=== PATIENT | female | born 1975 | race Caucasian/White ===

== ENCOUNTER 2017-11-14 10:54 | Emergency (ER) | payer OTHER ==
[~2017-11-14 10:54] MED LIST: ALPR.25 PO; ANUS25SU PR; LEVO137T2 PO; LISI-586 PO; METO25 PO; PERI8.6T PO
[2017-11-14 11:00] VITALS: BP 153/82; PULSE 151; RESP 18; TEMP 98.5; O2SAT 98
[2017-11-14 11:10] VITALS: BP 114/57; PULSE 105; RESP 17; O2SAT 100
[2017-11-14] MEDS ORDERED: hydrOXYzine PAMOATE 25 MG CAP PO ONE (11:15)
[2017-11-14] MEDS ORDERED: SODIUM CHLORIDE 0.9% FLUSH 10 ML FLUSH IVF PRN (11:15)
--- NOTE | 2017-11-14 11:28 | PD ---
HPI Chief Complaint: Anxiety Time Seen by Provider: 11:06 Travel History International Travel<30 days: No Contact w/Intl Traveler<30days: No Traveled to known affect area: No History of Present Illness HPI 42-year-old female presents emergency department with history of anxiety, presents emergency department with increased acute anxiety this morning. Patient states she woke up anxious, after taking some ibuprofen for some coccygeal pain that she has been suffering with. She states she took half a Xanax which is prescribed to her, but her symptoms did not improve. She took the other half and let it dissolve under tongue, and felt even worse, including some chest pain. She took a baby aspirin. She complains of numbness in both hands and forearms, as well as around her mouth. She denies chest pain at this time. She describes as very sharp and intermittent. She is somewhat nauseous but no vomiting or diarrhea. No recent fever. No recent illness. Patient has a long history of anxiety by her report. Patient is allergic to fiberglass, methylprednisone, and prochlorperazine. PFSH Past Medical History Anxiety: Yes High Cholesterol: Yes Diminished Hearing: No Headaches: Yes Hypertension: Yes Immunizations Current: Yes Thyroid Disease: Yes ?: Not : 6 Para: 2 Miscarriage: 1 : 3 Tubal Ligation: Yes Past Surgical History Section: Yes (X2) Gynecologic Surgery: Yes () Tonsillectomy: Yes Social History Alcohol Use: No Tobacco Use: No Substance Use: No Allergies-Medications (Allergen,Severity, Reaction): Coded Allergies: methylprednisolone (Unverified Allergy, Severe, ANXIETY, 11/14/17) prochlorperazine (Unverified Allergy, Severe, ANXIETY, 11/14/17) Uncoded Allergies: FIBERGLASS (Allergy, Severe, Anaphylaxis, 07/26/10) Reported Meds & Prescriptions Reported Meds & Active Scripts Active Anusol-Hc (Hydrocortisone Acetate) 25 Mg Sup 25 Mg ME BID 7 Days Reported Mandi-Colace 8.6-50 mg (Sennosides-Docusate Sodium) 1 Tab Tab Unknown Dose PO DIRECTED Xanax 0.25 Mg (Alprazolam) Alprazolam 0.25 mg Tab 1 Tab PO Q6H PRN Levothyroxine 137 mcg (Levothyroxine Sodium) 137 Mcg Tab 1 Mcg PO DAILY Zestoretic 20/12.5 (Lisinopril/Hctz 20 mg/12.5 mg) 20 Mg/12.5 Mg Tab 1 Tab PO DAILY Metoprolol Tartrate 25 mg (Metoprolol Tartrate) 25 Mg Tab 25 Mg PO BID Review of Systems Except as stated in HPI: all other systems reviewed are Neg General / Constitutional: No: Fever Eyes: No: Visual changes HENT: No: Headaches Cardiovascular: Positive: Chest Pain or Discomfort (Reported in history of present illness per), Tachycardia Respiratory: No: Shortness of Breath Gastrointestinal: Positive: Nausea, No: Vomiting, Diarrhea, Abdominal Pain Genitourinary: No: Dysuria Musculoskeletal: No: Pain Skin: No Rash Neurologic: Positive: Paresthesia, No: Weakness Psychiatric: Positive: Anxiety, No: Depression Endocrine: No: Polydipsia Hematologic/Lymphatic: No: Easy Bruising Physical Exam Narrative GENERAL: Patient appears very anxious and is hyperventilating upon arrival. SKIN: Warm and dry. Normal color. Normal turgor per HEAD: Atraumatic. Normocephalic. EYES: Pupils equal and round. No scleral icterus. No injection or drainage. ENT: No nasal bleeding or discharge. Mucous membranes pink and moist. Pharynx is clear. Airways patent NECK: Trachea midline. Supple nontender without palpable thyroid CARDIOVASCULAR: Tachycardia rate and normal rhythm. RESPIRATORY: No accessory muscle use. Clear to auscultation. Breath sounds equal bilaterally. GASTROINTESTINAL: Abdomen soft, non-tender, nondistended. Hepatic and splenic margins not palpable. MUSCULOSKELETAL: Extremities without clubbing, cyanosis, or edema. No obvious deformities. Range of motion is full. Neurovascular exam is normal. NEUROLOGICAL: Awake and alert. No obvious cranial nerve deficits. Motor grossly within normal limits. Five out of 5 muscle strength in the arms and legs. Normal speech. PSYCHIATRIC: Appropriate mood and affect; insight and judgment normal. Data Data Last Documented VS Vital Signs Date Time Temp Pulse Resp B/P (MAP) Pulse Ox O2 Delivery O2 Flow Rate FiO2 11/14/17 11:32 100 Room Air 11/14/17 11:32 11/14/17 11:10 105 17 11/14/17 11:00 98.5 Orders Orders Electrocardiogram (11/14/17 11:11) Basic Metabolic Panel (Bmp) (11/14/17 11:11) Complete Blood Count With Diff (4/2/18 11:11) Ecg Monitoring (11/14/17 11:11) Iv Access Insert/Monitor (11/14/17 11:11) Oximetry (11/14/17 11:11) Oxygen Administration (11/14/17 11:11) Sodium Chloride 0.9% Flush (Ns Flush) (11/14/17 11:15) Hydroxyzine Pamoate (Vistaril) (11/14/17 11:15) Labs Laboratory Tests Test 11/14/17 11:30 White Blood Count 10.6 TH/MM3 Red Blood Count 4.44 MIL/MM3 Hemoglobin 13.2 GM/DL Hematocrit 38.4 % Mean Corpuscular Volume 86.5 FL Mean Corpuscular Hemoglobin 29.7 PG Mean Corpuscular Hemoglobin Concent 34.4 % Red Cell Distribution Width 13.6 % Platelet Count 231 TH/MM3 Mean Platelet Volume 8.2 FL Neutrophils (%) (Auto) 78.3 % Lymphocytes (%) (Auto) 17.1 % Monocytes (%) (Auto) 3.3 % Eosinophils (%) (Auto) 0.6 % Basophils (%) (Auto) 0.7 % Neutrophils # (Auto) 8.3 TH/MM3 Lymphocytes # (Auto) 1.8 TH/MM3 Monocytes # (Auto) 0.4 TH/MM3 Eosinophils # (Auto) 0.1 TH/MM3 Basophils # (Auto) 0.1 TH/MM3 CBC Comment DIFF FINAL Differential Comment Blood Urea Nitrogen 16 MG/DL Creatinine 0.87 MG/DL Random Glucose 156 MG/DL Calcium Level 8.8 MG/DL Sodium Level 138 MEQ/L Potassium Level 3.5 MEQ/L Chloride Level 102 MEQ/L Carbon Dioxide Level 26.8 MEQ/L Anion Gap 9 MEQ/L Estimat Glomerular Filtration Rate 71 ML/MIN [facility] Medical Decision Making Medical Screen Exam Complete: Yes Emergency Medical Condition: Yes Differential Diagnosis Anxiety. Chest pain. Shortness of breath. Hyper ventilation. Narrative Course Vital signs are stable. Patient is given 25 mg of Vistaril p.o. EKG is ordered. Labs ordered including CBC, and BMP. EKG shows normal sinus rhythm without ST changes. CBC, BMP are normal Patient is reevaluated after observation and feels 100% better. We will for discharge home. Patient is given a prescription for Vistaril 25 mg up to 4 times daily as needed #30. Recommend patient follow-up with her psychiatrist and counselor as discussed. Patient can return if symptoms worsen as needed. Diagnosis Primary Impression: Anxiety Additional Impression: Anxiety hyperventilation Referrals: Primary Care Physician Psychiatrist Patient Instructions: Anxiety (ED), General Instructions Additional Instructions: EKG shows normal sinus rhythm without ST changes. CBC, BMP are normal Patient is reevaluated after observation and feels 100% better. We will for discharge home. Patient is given a prescription for Vistaril 25 mg up to 4 times daily as needed #30. Recommend patient follow-up with her psychiatrist and counselor as discussed. Patient can return if symptoms worsen as needed. Med/Other Pt SpecificInfo: Prescription(s) given Disposition: DISCHARGE HOME Condition: Stable Goldy Suarez Nov 14, 2017 11:28
[2017-11-14 11:32] VITALS: O2SAT 100
[2017-11-14 11:48] LABS: AUTOMATED NEUTROPHIL # 8.3 TH/MM3 (1.8-7.7); BASOPHIL # 0.1 TH/MM3 (0-0.2); BASOPHIL % 0.7 % (0.0-2.0); EOSINOPHIL # 0.1 TH/MM3 (0-0.4); EOSINOPHIL % 0.6 % (0.0-4.0); HEMATOCRIT 38.4 % (35.0-46.0); HEMOGLOBIN 13.2 GM/DL (11.6-15.3); LYMPH % 17.1 % (9.0-44.0); LYMPHOCYTE # 1.8 TH/MM3 (1.0-4.8); MEAN CELL VOLUME 86.5 FL (80.0-100.0); MEAN CORPUSCULAR HEMOGLOBIN 29.7 PG (27.0-34.0); MEAN CORPUSCULAR HGB CONC 34.4 % (32.0-36.0); MEAN PLATELET VOLUME 8.2 FL (7.0-11.0); MONO % 3.3 % (0.0-8.0); MONOCYTE # 0.4 TH/MM3 (0-0.9); NEUT % 78.3 % (16.0-70.0); PLATELET COUNT 231 TH/MM3 (150-450); RED BLOOD COUNT 4.44 MIL/MM3 (4.00-5.30); RED CELL DISTRIBUTION WIDTH 13.6 % (11.6-17.2); WHITE BLOOD COUNT 10.6 TH/MM3 (4.0-11.0)
[2017-11-14 12:17] LABS: BICARBONATE 26.8 MEQ/L (21.0-32.0); CALCIUM 8.8 MG/DL (8.5-10.1); CREATININE 0.87 MG/DL (0.50-1.00)
[2017-11-14] MEDS ORDERED: VIST25CA PO ×2 (12:43→13:15)
[2017-11-14 13:14] VITALS: BP 132/75
--- NOTE | 2017-11-15 16:38 | EKG ---
Date Performed: 11/14/2017 Time Performed: 11:25:14 PTAGE: 42 years EKG: Sinus rhythm Since previous tracing, no significant change noted NORMAL ECG PREVIOUS TRACING : 03/18/2014 19.24 DOCTOR: Stanislav Rothman Interpretating Date/Time 11/15/2017 16:37:20
== END 2017-11-14 13:15 | disposition home or self-care (01) ==
LOC: NEPD 10:54
DX: F41.9 Anxiety disorder, unspecified (principal); I10 Essential (primary) hypertension
CPT/HCPCS: 80048; 85025; 93005; 99284; Q0177